=== PATIENT | male | born 1945 | race Caucasian/White ===

== ENCOUNTER 2022-02-11 09:10 | Emergency (ER) | payer MEDICARE ==
[2022-02-11] MEDS ORDERED: Dexamethasone 10 MG/ML VIAL ONE (11:00)
== END 2022-02-11 11:10 | disposition home or self-care (01) ==
LOC: CSHERS 09:10
DX: U07.1 COVID-19 (principal); I10 Essential (primary) hypertension
CPT/HCPCS: 71045; J1100

== ENCOUNTER 2023-03-11 13:02 | Outpatient (CLI) | payer MEDICARE | END 2023-03-11 13:03 | disposition home or self-care (01) | LOC: CSHWCC 13:02 | PROVIDERS: ATTEND Nurse Practitioner Family | DX: R60.9 Edema, unspecified (principal); I87.312 Chronic venous hypertension (idiopathic) with ulcer of left lower extremity; L97.821 Non-pressure chronic ulcer of other part of left lower leg limited to breakdown of skin; I87.311 Chronic venous hypertension (idiopathic) with ulcer of right lower extremity; L97.811 Non-pressure chronic ulcer of other part of right lower leg limited to breakdown of skin | CPT/HCPCS: 97139; G0463; 99212 ==